=== PATIENT | female | born 1985 | race Caucasian/White ===

== ENCOUNTER 2016-10-29 00:51 | Observation (INO) | payer OTHER ==
[2016-10-29] MEDS ORDERED: IV RINGERS,LACTATED 1000ML 1,000 ML IV SCH (01:15)
[2016-10-29 01:48] LABS: BILIRUBIN,URINE NEGATIVE (NEG); GLUCOSE,URINE NEGATIVE (NEG); NITRITE,URINE NEGATIVE (NEG); UROBILINOGEN,URINE 0.2 mg/dL (0.2 mg/dL)
[2016-10-29 02:05] LABS: BACTERIA,URINE MODERATE /HPF (0-FEW); PROTEIN,URINE 30 mg/dL (NEG-TRACE); RBC,URINE OCC /HPF (0-2); SQUAMOUS EPITHELIAL CELL,UR MOD /LPF; WBC,URINE OCC /HPF (0-4)
== END 2016-10-29 03:10 | disposition home or self-care (01) ==
LOC: 3 SO LND 00:51
PROVIDERS: ADMIT Specialist; ATTEND Specialist
DX: O26.893 Other specified pregnancy related conditions, third trimester (principal); R10.30 Lower abdominal pain, unspecified; M54.9 Dorsalgia, unspecified; Z3A.30 30 weeks gestation of pregnancy
CPT/HCPCS: 81001; 87086; G0378; G0379